=== PATIENT | female | born 1950 | race Two or more races ===

== ENCOUNTER 2021-03-15 08:00 | Outpatient (CLI) | payer OTHER ==
[~2021-03-15 08:00] MED LIST: TRIAMTERENE-HCT1 TA2
== END 2021-03-15 08:30 | disposition home or self-care (01) ==
LOC: PPH VACUNA 08:00
PROVIDERS: ATTEND Emergency Medicine Pediatric Emergency Medicine
DX: Z23 Encounter for immunization (principal)

== ENCOUNTER 2022-11-19 09:24 | Outpatient (CLI) | payer OTHER | END 2022-11-19 09:32 | disposition home or self-care (01) | LOC: MAMO-SONO 09:24 | PROVIDERS: ATTEND Obstetrics & Gynecology | DX: N60.11 Diffuse cystic mastopathy of right breast (principal); Z12.31 Encounter for screening mammogram for malignant neoplasm of breast ==

== ENCOUNTER 2023-01-20 13:32 | Outpatient (CLI) | payer OTHER | END 2023-01-20 13:40 | disposition home or self-care (01) | LOC: SONOGRAMA 13:32 | PROVIDERS: ATTEND Obstetrics & Gynecology | DX: N60.11 Diffuse cystic mastopathy of right breast (principal) ==

== ENCOUNTER 2024-09-09 12:59 | Outpatient (CLI) | payer OTHER | END 2024-09-09 13:01 | disposition home or self-care (01) | LOC: MAMO-SONO 12:59 | PROVIDERS: ATTEND Obstetrics & Gynecology | DX: N60.11 Diffuse cystic mastopathy of right breast (principal); Z12.31 Encounter for screening mammogram for malignant neoplasm of breast ==